=== PATIENT | male | born 2000 | race Caucasian/White ===

== ENCOUNTER 2020-04-17 23:06 | Emergency (ER) | payer SELFPAY ==
[2020-04-17 23:04] VITALS: BP 146/99; PULSE 87; RESP 17; TEMP 37; O2SAT 97
--- NOTE | 2020-04-17 23:10 | ED_ITS ---
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 No pain in the midline. Radiates throughout the lateral lower back. The pain was severe. He was given 2 mg morphine by EMS and the pain decreased to 3/10. No Weakness, numbness, trauma. Related Data Allergies Allergy/AdvReac Type Severity Reaction Status Date / Time aripiprazole [From Abilify] Allergy Unknown Unknown Verified 04/17/20 23:09 Review of Systems Review of Systems: All systems reviewed & are unremarkable except as noted in HPI and below Constitutional: Constitutional: Denies weakness Cardiovascular: Cardiovascular: Denies chest pain Respiratory: Respiratory: Denies dyspnea Musculoskeletal: Musculoskeletal: Reports back pain Neurologic: Denies numbness and Denies weakness [facility] Social History Social History (Updated 04/17/20 @ 23:14 by Steven Paez MD) 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 No indication for emergent imaging at this time. Already received morphine. I will give him toradol and discharge him with NSAIDs adn flexeril Discharge Plan Discharge Clinical Impression: Strain of lumbar region Qualifiers: Encounter type: initial encounter Qualified Code(s): S39.012A - Strain of muscle, fascia and tendon of lower back, initial encounter Patient Disposition: Home, Self-Care Condition: Stable Instructions: Low Back Strain (ED), Lower Back Exercises (ED) Prescriptions: New cyclobenzaprine 10 mg tablet 10 mg PO TID PRN (Reason: muscle spasm) Qty: 20 RF: 0 ibuprofen 600 mg tablet 600 mg PO QID PRN (Reason: pain) Qty: 60 RF: 0
[2020-04-17] MEDS: KETOROLAC 30 MG/ML VIAL (*BKC) IV PUSH (23:20)
== END 2020-04-17 23:35 | disposition home or self-care (01) ==
LOC: ANHED 23:23
PROVIDERS: Emergency Provider Emergency Medicine
DX: S39.012A Strain of muscle, fascia and tendon of lower back, initial encounter (principal); X50.0XXA Overexertion from strenuous movement or load, initial encounter; Y99.0 Civilian activity done for income or pay
CPT/HCPCS: 96374; 99284; J1885